=== PATIENT | female | born 1990 | race Caucasian/White ===

== ENCOUNTER 2017-09-06 02:16 | Emergency (ER) | payer SELFPAY ==
[~2017-09-06] VITALS: Ht 132.1 cm; Wt 77.1 kg
[~2017-09-06 02:16] MED LIST: ACET-1718 PO; IBUP800T37 PO; PREN-127 PO; PROG200C PO; SERT-1 PO; SERT-181 PO
[2017-09-06] MEDS ORDERED: NS(*) 0.9% 1000 ML BAG 1,000 ML IV ONE (02:23)
--- NOTE | 2017-09-06 02:23 | ER Report ---
History and Physical Time Seen By MD: 02:22 HPI/ROS CHIEF COMPLAINT: Heavy vaginal bleeding HISTORY OF PRESENT ILLNESS: 27-year-old female at 14 weeks, presents with awakening at midnight with heavy vaginal bleeding saturating her bed. She stood up and passed a large bunch of clots. And then had another gush of blood at approximately 2 AM. She presents to the ER. Tachycardic in borderline hypotensive with a blood pressure of 105. She is slightly pale appearing, skin is warm and dry. She is tachycardic. She has a previous history of miscarriages requiring D&C. REVIEW OF SYSTEMS: Respiratory: No cough, no dyspnea. Cardiovascular: No chest pain, no palpitations. Gastrointestinal: No vomiting, no abdominal pain. Musculoskeletal: No back pain. Allergies: Coded Allergies: azithromycin (Verified Allergy, Intermediate, RASH, 09/06/17) Home Meds Reported Medications Sertraline Hcl (ZOLOFT) 50 Mg Tablet, 1 TAB PO QDAY, TAB 08/02/17 Vits W-Ca,Fe,Fa(<1MG) ( VITAMINS) 1 Each Tablet, 1 EACH PO DAILY, TAB 04/23/17 Discontinued Reported Medications Progesterone,Micronized (PROGESTERONE) 200 Mg Capsule, 200 MG PO, CAPSULE 08/02/17 Reviewed Nurses Notes: Yes Old Medical Records Reviewed: Yes Hx Smoking: No Smoking Status: Never Smoker Exposure to Second Hand Smoke?: No Hx Substance Use Disorder: No Hx Alcohol Use: No Constitutional Vital Sign - Last 24 Hours 09/06/17 09/06/17 09/06/17 09/06/17 02:20 02:23 02:31 02:36 Temp 99.0 Pulse 85 86 92 Resp B/P (MAP) 105/71 105/71 (82) 111/72 (85) Pulse Ox 95 99 O2 Delivery Room Air 09/06/17 09/06/17 09/06/17 09/06/17 02:37 02:38 02:46 03:01 Pulse 99 112 85 126 Resp B/P (MAP) 111/80 (90) 91/81 (84) Pulse Ox 99 99 99 100 O2 Delivery Room Air Room Air 09/06/17 09/06/17 09/06/17 09/06/17 03:29 03:31 03:46 04:06 Pulse 85 ??? 88 Resp 22 17 10 B/P (MAP) 105/74 (84) Pulse Ox 97 94 97 09/06/17 09/06/17 09/06/17 04:26 04:30 04:35 Pulse 77 74 79 Resp 13 8 25 Pulse Ox 99 92 91 Physical Exam General Appearance: The patient is alert, has no immediate need for airway protection and no current signs of toxicity. Vital signs stable, borderline blood pressure, afebrile, skin warm, dry, pink HEENT: Pupils equal and round no injection. Extremities are moist, no erythema Respiratory: Chest is non tender, lungs are clear to auscultation. Cardiac: regular rate and rhythm Gastrointestinal: Abdomen is soft and non tender, no masses, bowel sounds normal. Pelvic: Small amount Dark blood and clots in the vaginal vault., Dark clots extending out of the cervical os, no adnexal tenderness or masses Musculoskeletal: Neck: Neck is supple and non tender. Extremities have full range of motion and are non tender. Skin: No rashes or lesions. DIFFERENTIAL DIAGNOSIS: After history and physical exam differential diagnosis was considered for vaginal bleeding including but not limited to ectopic , menses, miscarriage, subchorionic hemorrhage and dysfunctional uterine bleeding. Medical Decision Making Data Points Result Diagram: 09/06/1722409/06/17224 Laboratory Hematology Test 09/06/17 02:25 Red Blood Count 4.59 M/uL (4.17-5.56) Mean Corpuscular Volume 79.5 fL (80.0-96.0) Mean Corpuscular Hemoglobin 26.5 pg (26.0-33.0) Mean Corpuscular Hemoglobin Concent 33.3 g/dL (32.0-36.0) Red Cell Distribution Width 14.1 % (11.5-14.5) Mean Platelet Volume 8.7 fL (7.2-11.1) Neutrophils (%) (Auto) 62.2 % (39.4-72.5) Lymphocytes (%) (Auto) 26.1 % (17.6-49.6) Monocytes (%) (Auto) 10.3 % (4.1-12.4) Eosinophils (%) (Auto) 0.6 % (0.4-6.7) Basophils (%) (Auto) 0.8 % (0.3-1.4) Nucleated RBC Relative Count (auto) 0.0 /100WBC Neutrophils # (Auto) 5.7 K/uL (2.0-7.4) Lymphocytes # (Auto) 2.4 K/uL (1.3-3.6) Monocytes # (Auto) 0.9 K/uL (0.3-1.0) Eosinophils # (Auto) 0.1 K/uL (0.0-0.5) Basophils # (Auto) 0.1 K/uL (0.0-0.1) Nucleated RBC Absolute Count (auto) 0.00 K/uL Prothrombin Time 12.9 seconds (12.0-14.4) Prothromb Time International Ratio 0.98 Activated Partial Thromboplast Time 30 seconds (23-35) Sodium Level 134 mmol/L (137-145) Potassium Level 3.6 mmol/L (3.5-5.0) Chloride Level 102 mmol/L (98-107) Carbon Dioxide Level 23 mmol/L (22-31) Blood Urea Nitrogen 9 mg/dl (7-18) Creatinine 0.60 mg/dl (0.52-1.04) Glomerular Filtration Rate Calc > 60.0 Random Glucose 85 mg/dl (75-110) Calcium Level 9.1 mg/dl (8.4-10.2) Total Bilirubin 0.3 mg/dl (0.2-1.3) Aspartate Amino Transf (AST/SGOT) 18 U/L (0-35) Alanine Aminotransferase (ALT/SGPT) 22 U/L (0-56) Alkaline Phosphatase 54 U/L (0-126) Total Protein 7.8 gm/dl (6.3-8.2) Albumin 4.2 g/dl (3.5-5.0) Human Chorionic Gonadotropin, Qual Positive (NEGATIVE) Human Chorionic Gonadotropin, Quant 76963 mIU/ml Chemistry Test 09/06/17 02:25 White Blood Count 9.1 k/uL (4.5-11.0) Red Blood Count 4.59 M/uL (4.17-5.56) Hemoglobin 12.2 g/dL (12.0-16.0) Hematocrit 36.5 % (34.0-47.0) Mean Corpuscular Volume 79.5 fL (80.0-96.0) Mean Corpuscular Hemoglobin 26.5 pg (26.0-33.0) Mean Corpuscular Hemoglobin Concent 33.3 g/dL (32.0-36.0) Red Cell Distribution Width 14.1 % (11.5-14.5) Platelet Count 345 K/uL (150-450) Mean Platelet Volume 8.7 fL (7.2-11.1) Neutrophils (%) (Auto) 62.2 % (39.4-72.5) Lymphocytes (%) (Auto) 26.1 % (17.6-49.6) Monocytes (%) (Auto) 10.3 % (4.1-12.4) Eosinophils (%) (Auto) 0.6 % (0.4-6.7) Basophils (%) (Auto) 0.8 % (0.3-1.4) Nucleated RBC Relative Count (auto) 0.0 /100WBC Neutrophils # (Auto) 5.7 K/uL (2.0-7.4) Lymphocytes # (Auto) 2.4 K/uL (1.3-3.6) Monocytes # (Auto) 0.9 K/uL (0.3-1.0) Eosinophils # (Auto) 0.1 K/uL (0.0-0.5) Basophils # (Auto) 0.1 K/uL (0.0-0.1) Nucleated RBC Absolute Count (auto) 0.00 K/uL Prothrombin Time 12.9 seconds (12.0-14.4) Prothromb Time International Ratio 0.98 Activated Partial Thromboplast Time 30 seconds (23-35) Glomerular Filtration Rate Calc > 60.0 Calcium Level 9.1 mg/dl (8.4-10.2) Total Bilirubin 0.3 mg/dl (0.2-1.3) Aspartate Amino Transf (AST/SGOT) 18 U/L (0-35) Alanine Aminotransferase (ALT/SGPT) 22 U/L (0-56) Alkaline Phosphatase 54 U/L (0-126) Total Protein 7.8 gm/dl (6.3-8.2) Albumin 4.2 g/dl (3.5-5.0) Human Chorionic Gonadotropin, Qual Positive (NEGATIVE) Human Chorionic Gonadotropin, Quant 62312 mIU/ml Coagulation Test 09/06/17 02:25 Prothrombin Time 12.9 seconds Prothromb Time International Ratio 0.98 Activated Partial Thromboplast Time 30 seconds EKG/Imaging Imaging Results: Ultrasound of the greater than 14 week OB ultrasound was obtained. The results of the study are INDICATION: , vaginal bleeding. COMPARISON: 08/02/2017. TECHNIQUE: Grayscale, color Doppler and M-mode ultrasound images of the fetus and maternal organs were obtained. FINDINGS: Reported estimated date of delivery: 03/05/2018 Age by dates: 14 weeks, 2 days Number of fetuses: 1 position: Breech Placental location: Anterior/fundal. There may be additional placental material extending to posteriorly which could suggest a succenturiate lobe. Deep to this is crescentic hypoechoic material. Cervix: Closed. Amniotic fluid volume: Grossly normal. Biometry as follows: Biparietal diameter: 2.73 cm 14 weeks, 6 days Head circumference: 9.68 cm 14 weeks, 4 days Abdominal circumference: 8.45 cm 14 weeks, 6 days Femur length: 1.45 cm 14 weeks, 2 days Average age by ultrasound: 14 weeks, 5 days Estimated weight: 100 gm weight percentile: 51st %tile anatomic survey was not performed. heart rate is 167 BPM. IMPRESSION: 1. Single intrauterine gestation with average ultrasound age of 14 weeks 5 days , corresponding to gestational age by date, which is 14 weeks 2 days. Estimated weight is in the 51st %tile. heart rate is 167 BPM. 2. Anterior/fundal placental with possible succenturiate lobe extending posteriorly. Crescentic hypoechoic material deep to this could represent subchorionic hemorrhage or abruption appropriate setting. Consider obstetric consultation and follow-up as indicated. The study was read by the radiologist. I viewed the images myself on the PACS system. ED Course/Re-evaluation Clinical Indication for ER IV: Hydration, IV Access ED Course Patient was admitted to an examination room. H&P was done. The dental diagnoses was considered. On clinical examination. Patient was borderline hypotensive on arrival. She had a peripheral IV established, was given 1 L of normal saline. Her H&H were evaluated and were unremarkable. A 12 and 36. She underwent pelvic ultrasound which showed an intact 14 week with a subchorionic hemorrhage. On pelvic examination there were dark clots being expressed from the cervix. Otherwise, no gonzalo bleeding. Case was discussed with on-call OPHTHALMIC PHOTOGRAPHER who advised urgent follow-up tomorrow in the office. 09/06/2017 4:25:04 am case was discussed with Dr. Moser on-call OPHTHALMIC PHOTOGRAPHER, who advises follow-up in the next 1-2 days with the primary OPHTHALMIC PHOTOGRAPHER. Patient otherwise advised bed rest Decision to Disposition Date: Sep 06, 2017 Decision to Disposition Time: 04:24 Depart Departure Latest Vital Signs Vital Signs Date Time Temp Pulse Resp B/P (MAP) Pulse Ox O2 Delivery O2 Flow Rate FiO2 09/06/17 04:35 79 25 91 09/06/17 03:29 105/74 (84) 09/06/17 02:38 Room Air 09/06/17 02:20 99.0 Impression: Primary Impression: Miscarriage, threatened, early Condition: Improved Disposition: HOME OR SELF-CARE Referrals: SHAWN HUGO MD (PCP) Patient Instructions: Threatened Miscarriage (ED) Additional Instructions: Remain at bedrest as much as possible, drink plenty of fluids Contact your OPHTHALMIC PHOTOGRAPHER later this morning and let them know how you are doing MONIKA BISWAS DO Sep 06, 2017 02:23
[2017-09-06 02:43] LABS: PLATELET COUNT, AUTOMATED 345 K/uL (150-450)
[2017-09-06 02:56] LABS: INR 0.98
[2017-09-06 03:29] VITALS: BP 105/74
--- NOTE | 2017-09-06 04:12 | RADIOLOGY IMAGING REPORT ---
FACILITY: [facility] PATIENT NAME: Madison Dove : 1990 MR: [id number] V: [id number] EXAM DATE: ORDERING PHYSICIAN: MONIKA BISWAS TECHNOLOGIST: [place] [facility] [place] Dove : 1990 Visit/Account:[id number] Date of Sevice: 09/06/2017 EXAMINATION: LIMITED OB ULTRASOUND DATE: 09/06/2017 2:23 AM. INDICATION: , vaginal bleeding. COMPARISON: 08/02/2017. TECHNIQUE: Grayscale, color Doppler and M-mode ultrasound images of the fetus and maternal organs wer e obtained. FINDINGS: Reported estimated date of delivery: 03/05/2018 Age by dates: 14 weeks, 2 days Number of fetuses: 1 position: Breech Placental location: Anterior/fundal. There may be additional placental material extending to vp product iorly which could suggest a succenturiate lobe. Deep to this is crescentic hypoechoic material. Cervix: Closed. Amniotic fluid volume: Grossly normal. Biometry as follows: Biparietal diameter: 2.73 cm 14 weeks, 6 days Head circumference: 9.68 cm 14 weeks, 4 days Abdominal circumference: 8.45 cm 14 weeks, 6 days Femur length: 1.45 cm 14 weeks, 2 days Average age by ultrasound: 14 weeks, 5 days Estimated weight: 100 gm weight percentile: 51st %tile anatomic survey was not performed. heart rate is 167 BPM. IMPRESSION: 1. Single intrauterine gestation with average ultrasound age of 14 weeks 5 days, corresponding to ge stational age by date, which is 14 weeks 2 days. Estimated weight is in the 51st %tile. heart rate is 167 BPM. 2. Anterior/fundal placental with possible succenturiate lobe extending posteriorly. Crescentic hypo echoic material deep to this could represent subchorionic hemorrhage or abruption appropriate setting . Consider obstetric consultation and follow-up as indicated. Report Dictated By: Jamie Melissa MD at 09/06/2017 3:54 AM Report E-Signed By: Jamie Melissa MD at 09/06/2017 4:07 AM WSN:[id number]
== END 2017-09-06 04:48 | disposition home or self-care (01) ==
LOC: ER 02:17
DX: O20.0 Threatened abortion (principal); Z3A.14 14 weeks gestation of pregnancy
CPT/HCPCS: 76805; 84702; 84703; 85025; 85610; 85730; 86850; 86900; 86901; 86920; 96360; 99284; J7030; 82040; 82247; 82310; 82374; 82435; 82565; 82947; 84075; 84132; 84155; 84295; 84450; 84460; 84520

== ENCOUNTER → 2017-12-07 | Outpatient (CLI) | payer MEDICAID ==
[~2017-12-07] MED LIST changes: +CETI-169 PO; +DIPH0.5D21 IM; +SERT-184 PO
== END ==
LOC: LAB 14:29
PROVIDERS: ATTEND Obstetrics & Gynecology
DX: Z34.92 Encounter for supervision of normal pregnancy, unspecified, second trimester (principal)
CPT/HCPCS: 36415; 85027

== ENCOUNTER → 2017-12-09 | Outpatient (CLI) | payer MEDICAID | LOC: LAB 09:52 | PROVIDERS: ATTEND Obstetrics & Gynecology | DX: Z34.92 Encounter for supervision of normal pregnancy, unspecified, second trimester (principal) | CPT/HCPCS: 36415; 82950 ==

== ENCOUNTER 2018-02-08 02:49 | Outpatient (CLI) | payer MEDICAID ==
[~2018-02-08] VITALS: Ht 157.5 cm; Wt 92.1 kg
[~2018-02-08 02:49] MED LIST changes: -DIPH0.5D21 IM; +DIPH0.5S4 IM; +FLUC150T40 PO
[2018-02-08] MEDS ORDERED: DLR(*) 1000 ML BAG 1,000 ML IV PRN (02:50)
[2018-02-08] MEDS ORDERED: LR(*) 1000 ML BAG 1,000 ML IV PRN (02:50)
[2018-02-08 04:54] VITALS: BP 109/69; Ht 157.5 cm; Wt 92.1 kg
[2018-02-08] MEDS ORDERED: ONDANSETRON 4 MG ODT TABDP SL PRN (05:00)
[2018-02-08] MEDS ORDERED: ONDA4TAB PO (11:18)
[2018-02-13] MEDS ORDERED: LORA1TAB69 PO (09:30)
== END 2018-02-08 05:35 | disposition home or self-care (01) ==
LOC: OB 02:49 → L&D 02:49 → UNDOADMOB 02:49 → OB 02:49 → UNDODISOB 05:35 → L&D 05:35 → EDSTATUS 10:29
PROVIDERS: ATTEND Obstetrics & Gynecology
DX: O47.03 False labor before 37 completed weeks of gestation, third trimester (principal); Z3A.36 36 weeks gestation of pregnancy
CPT/HCPCS: 59025; 87081; G0463; J7120; S0119; 99213

== ENCOUNTER → 2018-02-09 | Outpatient (CLI) | payer MEDICAID ==
[2018-02-08 04:54] VITALS: BMI 37.1
[~2018-02-09] MED LIST changes: +ONDA4TAB PO
--- NOTE | 2018-02-09 11:09 | RADIOLOGY IMAGING REPORT ---
FACILITY: [facility] - [place] PATIENT NAME: Madison Dove : 1990 MR: [id number] V: [id number] EXAM DATE: ORDERING PHYSICIAN: SHAWN HUGO TECHNOLOGIST: Location: [facility] - [place] Patient: Madison Dove : 1990 Visit/Account:[id number] Date of Sevice: 02/09/2018 OB LIMITED HISTORY: Size greater than dates COMPARISON: September 06, 2017 TECHNIQUE: Transabdominal imaging was performed for assessment of the fetus and maternal pelvic s tructures. Transvaginal imaging was not performed. FINDINGS: Intrauterine gestations: One. presentation: Cephalic. heart rate: 136 bpm. Amniotic fluid volume: Polyhydramnios; SILVIA 22.1 cm; MVP 8 point 0.8 cm. Placenta: Anterior. Uterus: Gravid, otherwise grossly unremarkable where visualized. Maternal adnexa/ovaries: Grossly unremarkable, ovaries not visualized. Cervix: Not evaluated. Gestational Parameters: BPD: 9.12 cm, 74th percentile HC: 34.34 cm, 89th percentile AC: 32.81 cm, 67th percentile FL: 7.28 cm 66th percentile Average ultrasound age (AUA): 37 weeks/ five days Estimated age based on LMP: 36 weeks/ four days, 71st percentile Estimated weight (EFW): 3146 grams +/- 460 grams Anatomic Survey: Anatomic survey not performed IMPRESSION: Single viable fetus in cephalic presentation with an estimated gestational age by measurements of 37 weeks and five days. Estimated gestational age by last menstrual period is 36 weeks and four days. Estimated weight 3146 g There is polyhydramnios with the amniotic fluid index of 22.1 cm Results were called to SHAWN HUGO's nurse at 02/09/2018 11:05 AM. Report Dictated By: Darleen Humphries MD at 02/09/2018 10:57 AM Report E-Signed By: Darleen Humphries MD at 02/09/2018 11:05 AM WSN:[email or web address]
== END ==
LOC: RAD 07:54
PROVIDERS: ATTEND Obstetrics & Gynecology
DX: Z02.9 Encounter for administrative examinations, unspecified (principal)
CPT/HCPCS: 76815

== ENCOUNTER 2018-02-14 23:20 | Outpatient (CLI) | payer MEDICAID ==
[~2018-02-14] VITALS: Ht 157.5 cm; Wt 92.5 kg
[~2018-02-14 23:20] MED LIST changes: +LORA1TAB69 PO
[2018-02-15 01:01] VITALS: BP 119/77; Ht 157.5 cm; Wt 92.5 kg
== END 2018-02-15 03:02 | disposition home or self-care (01) ==
LOC: OB 23:20 → UNDOADMOB 23:20 → L&D 23:20 → UNDODISOB 02-15 03:02 → L&D 02-15 03:02 → EDSTATUS 03-15 07:13
PROVIDERS: ATTEND Obstetrics & Gynecology
DX: O47.1 False labor at or after 37 completed weeks of gestation (principal); Z3A.37 37 weeks gestation of pregnancy
CPT/HCPCS: 59025; G0378; G0379; 99213

== ENCOUNTER 2018-02-21 12:56 | Observation (INO) | payer MEDICAID ==
[~2018-02-21] VITALS: Ht 157.5 cm; Wt 93.0 kg
[2018-02-21] MEDS ORDERED: LR(*) 1000 ML BAG 1,000 ML IV SCH (13:11)
[2018-02-21] MEDS ORDERED: FAMOTIDINE(*) 20MG/50ML PREMIX 50 ML IVPB PRN (13:11)
[2018-02-21] MEDS ORDERED: OXYTOCIN 30 UNIT/D5LR 500 ML 500 ML IV PRN ×2 (13:11→14:12)
[2018-02-21] MEDS ORDERED: LIDOCAINE 1% LOCAL 300 MG/30ML INJ PRN (13:15)
[2018-02-21] MEDS ORDERED: fentaNYL CITR 100 MCG/2 ML AMP IVP PRN (13:15)
[2018-02-21] MEDS ORDERED: FLUSH 10 ML SYR IVP PRN (13:15)
[2018-02-21] MEDS ORDERED: LIDOCAINE/SOD BICARB 8.4% SYR SC PRN (13:15)
[2018-02-21] MEDS ORDERED: METOCLOPRAMIDE 10 MG/2 ML SDV IVP PRN (13:15)
[2018-02-21 13:30] VITALS: BP 124/73; Ht 157.5 cm; Wt 93.0 kg
[2018-02-21 13:37] LABS: PLATELET COUNT, AUTOMATED 208 K/uL (150-450)
--- NOTE | 2018-02-21 14:24 | History & Physical ---
History of Present Illness EDC per LMP: Mar 05, 2018 Estimated Gestational Age: 38.2 Chief Complaint Induction History of Present Illness 27yo at 38w2d presents for induction of labor for advanced cervical dilation. She has had regular uterine contractions for the past week, although this morning they have decreased significantly. She reports FM. No VB. No preeclampsia symptoms. PNC by IMG. PNR reviewed. c/b depression and S>D but normal ultrasound 02/09/18 with an EFW 71%ile. History Patient's Blood Type: A Positive Rubella Status: Immune Group B Strep Screen: Negative Obstetrical History: G1: 40w5d G2: 6wk SAB with hemorrhage and emergent D&C Past Medical History: PMH: Hearing deficit, IBS, arthritis, depression PSH: Emergent D&C Allergies: Coded Allergies: azithromycin (Verified Allergy, Intermediate, RASH, 09/06/17) egg (Unverified Adverse Reaction, Unknown, none listed, 11/28/17) gluten (Unverified Adverse Reaction, Unknown, none listed, 11/28/17) lactose (Unverified Adverse Reaction, Unknown, none listed, 11/28/17) Social History: No T/E/D. . Just moved here from [place]. 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 Family History: Duchenne muscle dystrophy maternal uncle FH: HTN (hypertension) MOTHER, Age:61 FH: diabetes mellitus maternal grandfather Med Rec Home Meds Active Scripts Ondansetron (ZOFRAN ODT) 4 Mg Tab.rapdis, 4 MG PO Q8H Y for ausean, #15 TAB.BUDDY 0 Refills Prov:SHAWN HUGO MD 02/08/18 Sertraline Hcl (SERTRALINE HCL) 100 Mg Tablet, 1 TAB PO QDAY, #90 TAB 3 Refills Prov:SHAWN HUGO MD 12/07/17 Reported Medications Loratadine/Pseudoephedrine (CLARITIN-D 24 HOUR TABLET) 1 Each Tab.er.24h, 1 EACH PO 02/13/18 Vits W-Ca,Fe,Fa(<1MG) ( VITAMINS) 1 Each Tablet, 1 TAB PO DAILY , TAB 04/23/17 Review of Systems Constitutional: No Fever Eyes: No Vision Change ENT: Hearing Loss Cardiovascular: No Chest Pain Respiratory: No Shortness of Breath, No Cough Gastrointestinal: No Nausea, No Vomiting, No Diarrhea Genitourinary: No Dysuria Musculoskeletal: No Pain Psychiatric: Depression, No Anxiety Exam General Exam Vital Signs VS reviewed General Apperance: Alert/Awake/No Acute Distress Neuro: No Gross deficits Eyes: Normal Extraocular Movement & Vison, PERRLA Cardiovascular: Regular Rate and Rhythm Respiratory: No Respiratory Distress, Clear to Auscultation Abdomen: Gravid - Non-Tender : Normal Musculoskeletal: No Weakness/Pain Extremities: No Cyanosis,Clubbing or Edema Integumentary: Skin Intact without Lesions or Rash Psychological: Alert & Oriented X3, Appropriate Mood & Affect Cervical Dialation: 6 Cervical Effacement (%): 60 Cervical Consistency: Moderate Cervical Position: Mid Station: Ballotable Presentation: Vertex Uterine Contractions(Q min): 0 Fetus FHT Category: I Medical Decision Making Data Points Result Diagram: 02/21/18 0365 Assessment and Plan Problems: (1) 38 weeks gestation of Assessment & Plan: 27-year-old at 38w2d presents for induction due to advanced cervical dilation. She was having regular uterine contractions for almost one full week, but no active labor. We discussed this may indicate a small infection versus normal irritability. I have offered her waiting until 39 weeks versus induction at this time. After discussing risks, benefits and alternatives she and her have elected to proceed with an induction of labor. The plan was for AROM, but baby's vertex is ballotable. Will start with slow pitocin and AROM once it is deemed safe. (2) Depression affecting Assessment & Plan: Zoloft 100mg now, but will consider increasing . SHAWN HUGO MD Feb 21, 2018 14:23
--- NOTE | 2018-02-21 18:32 | Labor Progress Note ---
Labor Subjective Progress Notes Subjective Patient is feeling contractions but not strong. She is on 10mU of pitocin. She denies VB. No LOF. No preeclampsia symptoms. Labor Objective Vital Signs Vital Signs Date Time Temp Pulse Resp B/P (MAP) Pulse Ox O2 Delivery O2 Flow Rate FiO2 02/21/18 13:30 98.3 80 18 124/73 (90) 96 Room Air Cervical Dialation: 5 Cervical Effacement (%): 60 Cervical Consistency: Moderate Cervical Position: Posterior Station: Ballotable Presentation: Vertex Uterine Contractions(Q min): 3 Fetus FHT Category: I General Exam General Appearance: Alert/Awake/No Acute Distress Cardiovascular: Normal Rhythm & Peripheral Pulses Respiratory: Clear to Auscultation Abdomen: Gravid - Non-Tender : Normal Musculoskeletal: No Weakness/Pain Extremities: No Cyanosis,Clubbing or Edema Integumentary: Skin Intact without Lesions or Rash Psychological: Alert & Oriented X3, Appropriate Mood & Affect Other Result Diagram: 02/21/18 1325 Assessment and Plan Problems: (1) 38 weeks gestation of Assessment & Plan: Pt is still only 5cm and 60% but can be stretched to 6cm. The cervix appears even more posterior than it was previously. The head is more central over the cervical opening, but still ballotable. She is currently on 10mu/min of pitocin with inconsistent contractions that are not very strong. This amount of pitocin has not been sufficient for the head to come down. I spent the past 45 minutes discussing options with the patient and her . We have discussed the most recent ultrasound revealed 71%ile EFW and SILVIA 15cm. This could be concerning for CPD, but the fact that the head was well applied yesterday and able to progress her cervix to 6/80 at that time is no as consistent with CPD. We discussed if she stays for induction, she is at a risk for for arrest of dilation or even cord prolapse. However, we also discussed the risks of cord prolapse if she goes home. She lives [place] [address] [place] from [facility] and is aware this is a low risk. After a lengthy discussion, she has opted to discontinue the pitocin and go home assuming she gets comfortable with decreased contractions after the pitocin is stopped. She will RTC on 02/23/18 for an ultrasound, 02/24/18 for OB check and NST, then again on 02/28/18 for an OB visit and NST. All questions were addressed. She is aware of precautions for worsening contractions, decreased FM or loss of fluid to come back. (2) Depression affecting Assessment & Plan: Zoloft 100mg now, but will consider increasing . SHAWN HUGO MD Feb 21, 2018 18:32
--- NOTE | 2018-02-21 18:34 | Short(Outpt) Discharge Summary ---
Discharge Summary Reason for Hosp/Final Diag: (1) 38 weeks gestation of Hospital Course & Plan: Pt is still only 5cm and 60% but can be stretched to 6cm. The cervix appears even more posterior than it was previously. The head is more central over the cervical opening, but still ballotable. She is currently on 10mu/min of pitocin with inconsistent contractions that are not very strong. This amount of pitocin has not been sufficient for the head to come down. I spent the past 45 minutes discussing options with the patient and her . We have discussed the most recent ultrasound revealed 71%ile EFW and SILVIA 15cm. This could be concerning for CPD, but the fact that the head was well applied yesterday and able to progress her cervix to 6/80 at that time is no as consistent with CPD. We discussed if she stays for induction, she is at a risk for for arrest of dilation or even cord prolapse. However, we also discussed the risks of cord prolapse if she goes home. She lives [place] away from [facility] and is aware this is a low risk. After a lengthy discussion, she has opted to discontinue the pitocin and go home assuming she gets comfortable with decreased contractions after the pitocin is stopped. She will RTC on 02/23/18 for an ultrasound, 02/24/18 for OB check and NST, then again on 02/28/18 for an OB visit and NST. All questions were addressed. She is aware of precautions for worsening contractions, decreased FM or loss of fluid to come back. (2) Depression affecting Hospital Course & Plan: Zoloft 100mg now, but will consider increasing . Departure Discharge to: Home, Self Care Discharge Instructions Home Meds Active Scripts Ondansetron (ZOFRAN ODT) 4 Mg Tab.rapdis, 4 MG PO Q8H Y for ausean, #15 TAB.BUDDY 0 Refills Prov:SHAWN HUGO MD 02/08/18 Sertraline Hcl (SERTRALINE HCL) 100 Mg Tablet, 1 TAB PO QDAY, #90 TAB 3 Refills Prov:SHAWN HUGO MD 12/07/17 Reported Medications Loratadine/Pseudoephedrine (CLARITIN-D 24 HOUR TABLET) 1 Each Tab.er.24h, 1 EACH PO 02/13/18 Vits W-Ca,Fe,Fa(<1MG) ( VITAMINS) 1 Each Tablet, 1 TAB PO DAILY , TAB 04/23/17 Follow up Referrals: [facility] - 02/23/18 @ [facility] Activity: As Tolerated SHAWN HUGO MD Feb 21, 2018 18:34
[2018-02-22] MEDS ORDERED: OXYTOCIN 30 UNIT/D5LR 500 ML 500 ML IV PRN (02:08)
== END 2018-02-21 21:46 | disposition home or self-care (01) ==
LOC: OB 12:56 → INTOOBSV 12:56
PROVIDERS: ADMIT Obstetrics & Gynecology; ATTEND Obstetrics & Gynecology
DX: O47.1 False labor at or after 37 completed weeks of gestation (principal); O99.343 Other mental disorders complicating pregnancy, third trimester; Z3A.38 38 weeks gestation of pregnancy
CPT/HCPCS: 85025; 86850; 86900; 86901; G0378; G0379; J2590; J7120

== ENCOUNTER → 2018-02-23 | Outpatient (CLI) | payer MEDICAID ==
[2018-02-21 13:30] VITALS: BMI 37.5
--- NOTE | 2018-02-23 17:37 | RADIOLOGY IMAGING REPORT ---
FACILITY: [facility] PATIENT NAME: Madison Dove : 1990 MR: [id number] V: [id number] EXAM DATE: ORDERING PHYSICIAN: SHAWN HUGO TECHNOLOGIST: Location: [facility] - [place] Patient: Madison Dove : 1990 Visit/Account:[id number] Date of Sevice: 02/23/2018 EXAMINATION: Limited Transabdominal OB Ultrasound >14 wks Without Full Anatomic Survey 02/23/2018 9:10 AM HISTORY: Size date discrepancy COMPARISON: [facility] most recently 02/09/2014 FINDINGS: Intrauterine gestations: one presentation: vertex heart rate: 146 bpm Amniotic fluid index: 17.6 cm Largest amniotic fluid pocket 9.1 cm Placenta: Anterior without previa Uterus: gravid, otherwise normal Maternal adnexa: Not imaged Cervix: Grossly closed but not well seen. Transvaginal imaging was not done. Gestational Parameters: BPD: 9.4 cm 38 weeks 2 days HC: 34.9 cm 40 weeks 4 days AC: 34.9 cm 38 weeks 6 days FL: 7.4 cm 38 weeks 0 days Average ultrasound age (AUA): 39 weeks 0 days , JOSELINE 03/02/2018 Estimated gestational age by LMP: 38 weeks 4 days, JOSELINE 03/05/2018 Estimated weight (EFW): 3184 grams +/- 523 grams EFW for LMP percentile: 71 Anatomic Survey: Complete anatomic survey was not performed. IMPRESSION: Single live intrauterine gestation; estimated ultrasound age 39 weeks 0 days (JOSELINE 03/02/2018). This i s within range of expected dates.. Report Dictated By: Liborio Villalpando MD at 02/23/2018 5:28 PM Report E-Signed By: Liborio Villalpando MD at 02/23/2018 5:33 PM WSN:[email or web address]
== END ==
LOC: RAD 09:04
PROVIDERS: ATTEND Obstetrics & Gynecology
DX: Z02.9 Encounter for administrative examinations, unspecified (principal)
CPT/HCPCS: 76815

== ENCOUNTER 2018-02-28 05:08 | Inpatient (IN) | payer MEDICAID ==
[~2018-02-28] VITALS: Ht 157.5 cm; Wt 93.0 kg
[2018-02-28] MEDS ORDERED: LIDOCAINE/SOD BICARB 8.4% SYR SC PRN (05:10)
[2018-02-28] MEDS ORDERED: METOCLOPRAMIDE 10 MG/2 ML SDV IVP PRN (05:10)
[2018-02-28] MEDS ORDERED: TERBUTALINE SULF 1 MG/ML VIAL SUBQ PRN (05:10)
[2018-02-28] MEDS ORDERED: OXYTOCIN 30 UNIT/D5LR 500 ML 500 ML IV PRN ×2 (05:10→13:14)
[2018-02-28] MEDS ORDERED: fentaNYL CITR 100 MCG/2 ML AMP IVP PRN (05:10)
[2018-02-28] MEDS ORDERED: LIDOCAINE 1% LOCAL 300 MG/30ML INJ PRN (05:10)
[2018-02-28] MEDS ORDERED: ceFAZolin(*) 2GM/D5W 50ML 50 ML IVPB PRN (05:10)
[2018-02-28] MEDS ORDERED: FLUSH 10 ML SYR IVP PRN (05:10)
[2018-02-28] MEDS ORDERED: ONDANSETRON 4 MG/2 ML VIAL IVP PRN (05:10)
[2018-02-28] MEDS ORDERED: FAMOTIDINE(*) 20MG/50ML PREMIX 50 ML IVPB PRN (05:10)
[2018-02-28 05:30] VITALS: BP 111/68; Ht 157.5 cm; Wt 93.0 kg
[2018-02-28 06:19] LABS: PLATELET COUNT, AUTOMATED 171 K/uL (150-450)
[2018-02-28] MEDS: LR(*) 1000 ML BAG 1,000 ML IV PRN ×2 (06:24→10:25)
[2018-02-28] MEDS ORDERED: fentaNYL CITR 100 MCG/2 ML AMP IT PRN (07:30)
[2018-02-28] MEDS ORDERED: BUPIVACAINE 0.5% INJ 30ML VIAL EPI PRN (07:30)
[2018-02-28] MEDS ORDERED: FENTANYL/ROPIVACAINE 100 ML BAG EPI PRN (07:30)
[2018-02-28] MEDS ORDERED: EPIDURAL KEYS XX PRN (07:30)
[2018-02-28] MEDS ORDERED: LIDO/EPI 2% MPF 1:200,000 20ML EPI PRN (07:30)
[2018-02-28] MEDS ORDERED: LIDOCAINE/PF 2% 200MG/10ML AMP 200 MG/10 ML AMPUL EPI PRN (07:30)
[2018-02-28] MEDS ORDERED: BUPIVACAINE 0.25% MPF INJ EPI PRN (07:30)
--- NOTE | 2018-02-28 07:37 | History & Physical ---
History of Present Illness EDC per LMP: Mar 05, 2018 Estimated Gestational Age: 39.2 Chief Complaint Induction History of Present Illness 27yo at 39w2d presents for induction of labor due to advanced cervical dilation, S>D and patient desires for induction. She reports regular UCx coming in and normal FM. No VB/LOF. No preeclampsia symptoms. PNR reviewed. otherwise c/b depression. PNC by IMG. History Patient's Blood Type: A Positive Rubella Status: Immune Group B Strep Screen: Negative Obstetrical History: G1: 40w5d G2: Emergent D&C for hemorrhage with SAB G3: Present Past Medical History: PSH: D&C, wisdom teeth Allergies: Coded Allergies: azithromycin (Verified Allergy, Intermediate, RASH, 09/06/17) egg (Unverified Adverse Reaction, Unknown, none listed, 11/28/17) gluten (Unverified Adverse Reaction, Unknown, none listed, 11/28/17) lactose (Unverified Adverse Reaction, Unknown, none listed, 11/28/17) Social History: No T/E/D. . Just moved here from [place]. 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 Family History: Duchenne muscle dystrophy maternal uncle FH: HTN (hypertension) MOTHER, Age:61 FH: diabetes mellitus maternal grandfather Med Rec Home Meds Active Scripts Ondansetron (ZOFRAN ODT) 4 Mg Tab.rapdis, 4 MG PO Q8H Y for ausean, #15 TAB.BUDDY 0 Refills Prov:SHAWN HUGO MD 02/08/18 Sertraline Hcl (SERTRALINE HCL) 100 Mg Tablet, 1 TAB PO QDAY, #90 TAB 3 Refills Prov:SHAWN HUGO MD 12/07/17 Reported Medications Loratadine/Pseudoephedrine (CLARITIN-D 24 HOUR TABLET) 1 Each Tab.er.24h, 1 EACH PO 02/13/18 Vits W-Ca,Fe,Fa(<1MG) ( VITAMINS) 1 Each Tablet, 1 TAB PO DAILY , TAB 04/23/17 Review of Systems Constitutional: No Fever Eyes: No Vision Change Cardiovascular: No Chest Pain Respiratory: No Shortness of Breath Gastrointestinal: No Nausea, No Vomiting, No Diarrhea Genitourinary: No Dysuria Musculoskeletal: No Pain Psychiatric: Depression Exam General Exam Vital Signs Vital Signs Date Time Temp Pulse Resp B/P (MAP) Pulse Ox O2 Delivery O2 Flow Rate FiO2 02/28/18 05:30 98.0 93 18 111/68 (82) 98 Room Air General Apperance: Alert/Awake/No Acute Distress Neuro: No Gross deficits Eyes: Normal Extraocular Movement & Vison Cardiovascular: Regular Rate and Rhythm Respiratory: No Respiratory Distress Abdomen: Gravid - Non-Tender : Normal Musculoskeletal: No Weakness/Pain Extremities: No Cyanosis,Clubbing or Edema Integumentary: Skin Intact without Lesions or Rash Psychological: Alert & Oriented X3, Appropriate Mood & Affect Cervical Dialation: 6 Cervical Effacement (%): 60 Cervical Consistency: Soft Cervical Position: Mid Station: Ballotable Presentation: Vertex Uterine Contractions(Q min): 5 Uterine Contraction Strength: Mild UC Resting Tone: Soft Fetus Feeling Movement?: Yes FHT Category: I Medical Decision Making Data Points Result Diagram: 02/28/18 0608 Pre-Admit Course Medical Record Review: Yes VTE Prophylasis: Adult Deep Vein Thrombosis/Pulmonary: No Assessment and Plan Problems: (1) 39 weeks gestation of Assessment & Plan: 27yo at 39w2d presents for IOL. Vertex is still very ballotable. Will increase pitocin. If no improvement by 3-4hrs, will get epidural and still plan AROM. I have offered the patient a PLTCD due to head not coming down, but have also offered an attempt at AROM. She and her are aware of the risk of prolapsed umbilical cord in this situation, but at some point it may take AROM to allow the vertex to come down in station. The patient and her understand this risk and the potential benefits. They would still prefer to attempt AROM. Due to this risk, she will get an epidural ahead of AROM. SHAWN HGUO MD Feb 28, 2018 07:37
[2018-02-28] MEDS ORDERED: FAMOTIDINE 20 MG TAB PO PRN (09:00)
[2018-02-28] MEDS ORDERED: CALCIUM CARBONATE 500 MG CHEW PO PRN (09:00)
[2018-02-28] MEDS ORDERED: KETOROLAC 30 MG/ML VIAL ONE ×2 (09:56→18:12)
[2018-02-28] MEDS ORDERED: LIDO/EPI 2% MPF 1:200,000 20ML ONE (09:56)
[2018-02-28] MEDS ORDERED: NEXT CASE 1 EA MISC IV ONE ×2 (09:58→17:16)
[2018-02-28] MEDS: ePHEDrine 25 MG/5 ML DISP.SYR IVP PRN ×3 (11:27→17:45)
--- NOTE | 2018-02-28 11:46 | Anesthesia OB Pre-Anes Eval ---
History of Present Illness Anesthesia Start Date: Feb 28, 2018 Anesthesia Start Time: 10:35 OB Anesthesia Diagnosis: induction - medical Current Complication: obesity EDC: Mar 05, 2018 : 3 Para: 1 Vital Signs: Laboratory Tests Test 02/28/18 06:08 White Blood Count 8.2 k/uL Red Blood Count 4.28 M/uL Hemoglobin 12.1 g/dL Hematocrit 35.2 % Mean Corpuscular Volume 82.3 fL Mean Corpuscular Hemoglobin 28.3 pg Mean Corpuscular Hemoglobin Concent 34.4 g/dL Red Cell Distribution Width 17.5 % Platelet Count 171 K/uL Mean Platelet Volume 9.6 fL Neutrophils (%) (Auto) 64.6 % Lymphocytes (%) (Auto) 21.3 % Monocytes (%) (Auto) 12.9 % Eosinophils (%) (Auto) 0.6 % Basophils (%) (Auto) 0.6 % Nucleated RBC Relative Count (auto) 0.0 /100WBC Neutrophils # (Auto) 5.3 K/uL Lymphocytes # (Auto) 1.7 K/uL Monocytes # (Auto) 1.1 K/uL Eosinophils # (Auto) 0.0 K/uL Basophils # (Auto) 0.0 K/uL Nucleated RBC Absolute Count (auto) 0.00 K/uL Peripheral Blood Smear Yes Y/N Current Medications Medications (Trade) Dose Ordered Sig/Juan Antonio Route PRN Reason Start Time Stop Time Status Last Admin Dose Admin Sodium Chloride (NS Flush) 10 ml PRN PRN IVP FLUSH 02/28/18 05:10 03/30/18 05:09 Lactated Ringer's 1,000 ml @ 0 mls/hr Q0M PRN IV HYDRATION 02/28/18 05:10 03/30/18 05:09 02/28/18 10:25 Oxytocin/Dextrose/ Lactated Ringer's 500 ml @ 0 mls/hr Q0M PRN IV PRN 02/28/18 05:10 03/30/18 05:09 02/28/18 06:23 Terbutaline Sulfate (Terbutaline Sulf(*) 1 Mg/ml Vial) 0.25 mg PRN PRN SUBQ CONTRACTIONS 02/28/18 05:10 Fentanyl Citrate (fentaNYL CITR(*) 100 MCG/2 ML AMP) 50-100 MCG Q1H PRN IVP PAIN 02/28/18 05:10 03/14/18 05:09 Cefazolin Sodium/ Dextrose 50 ml @ 100 mls/hr Q30M PRN IVPB EMERGENCY C SECTION 02/28/18 05:10 Metoclopramide HCl (Reglan(*) 10 Mg/ 2 ml Sdv (Or Equiv)) 10 mg PRN PRN IVP EMERGENCY C SECTION 02/28/18 05:10 02/28/18 11:13 DC 02/28/18 11:13 Famotidine/Sodium Chloride 50 ml @ 200 mls/hr Q15M PRN IVPB EMERGENCY C SECTION 02/28/18 05:10 02/28/18 11:12 Lidocaine HCl (Lidocaine 1% Local 300 Mg/30ml) 100-300 MG PRN PRN INJ ANESTHESIA 02/28/18 05:10 03/30/18 05:09 Lidocaine/Sodium Bicarbonate (Buffered Lidocaine 8.4% 1 ml Syr) 1 ml PRN PRN SC START IV 02/28/18 05:10 03/30/18 05:09 Ondansetron HCl (Zofran(*) 4 Mg/ 2 ml(Or Equiv)) 4-8 mg IV Q6H PRN Nausea Q6H PRN IVP NAUSEA 02/28/18 05:10 03/30/18 05:09 02/28/18 10:25 Bupivacaine HCl (Sensorcaine Mpf 0.25% Mpf Inj 30 ml Vial) 30 ml PRN PRN EPI PAIN 02/28/18 07:30 03/30/18 07:29 02/28/18 10:25 Bupivacaine HCl (Sensorcaine 0.5% Inj 30 ml Vial (Or Equiv)) 30 ml PRN PRN EPI PAIN 02/28/18 07:30 03/30/18 07:29 Fentanyl/ Ropivacaine (fentaNYL/ ROPIVACAINE 100ML BAG) 100 ml PRN PRN EPI PAIN 02/28/18 07:30 03/14/18 07:29 02/28/18 10:25 Lidocaine HCl (Xylocaine-Pf 2% 20 Mg/1 ml Amp) 100-200 MG PRN PRN EPI PAIN 02/28/18 07:30 03/30/18 07:29 Lidocaine/ Epinephrine (Xylocaine/Epi 2% Mpf 1:200,000 20 ml Vial) 20 ml PRN PRN EPI PAIN 02/28/18 07:30 03/30/18 07:29 Fentanyl Citrate (fentaNYL CITR(*) 100 MCG/2 ML AMP) 15-100 MCG PRN PRN IT PAIN 02/28/18 07:30 03/14/18 07:29 02/28/18 10:26 Ephedrine (Ephedrine-NS 25 Mg/5 ml Disp.syr (Or Equiv)) 10 mg PRN PRN IVP SEE COMMENT 02/28/18 07:30 03/30/18 07:29 Miscellaneous Information (Epidural Cal-[place]ev-Ari) 1 each PRN PRN XX PAIN 02/28/18 07:30 03/30/18 07:29 Famotidine (Pepcid(*) 20 Mg Tab (Or Equiv)) 20 mg PRN PRN PO HEARTBURN 02/28/18 09:00 03/30/18 08:59 Calcium Carbonate (Tums(*) 500 Mg Chew (Or Equiv)) 1,000 mg PRN PRN PO HEARTBURN 02/28/18 09:00 03/30/18 08:59 02/28/18 09:06 Lidocaine/ Epinephrine (Xylocaine/Epi 2% Mpf 1:200,000 20 ml Vial) 20 ml STK-MED ONCE .ROUTE 02/28/18 09:56 02/28/18 10:09 DC Ketorolac Tromethamine (Toradol (*) 30 Mg/ml Vial (Or Equiv)) 30 mg STK-MED ONCE .ROUTE 02/28/18 09:56 02/28/18 10:09 DC Miscellaneous Information (Next Case) 1 each STK-MED ONCE IV 02/28/18 09:58 02/28/18 10:09 DC Pain Ratin Heart Tones: 143 Result Diagram: 02/28/18 06 Height (Inches): 62.00 Weight (Pounds): 205 BMI Calculated: 37.49 Past Medical History Surgical History: other (D AND C) Previous Anesthesia: general Hx Anesthesia Reactions: No Hx Family Anesthesia Reaction: No Current Medications: pitocin Past Complications: obesity Home Meds Active Scripts Ondansetron (ZOFRAN ODT) 4 Mg Tab.rapdis, 4 MG PO Q8H Y for ausean, #15 TAB.BUDDY 0 Refills Prov:SHAWN HUGO MD 02/08/18 Sertraline Hcl (SERTRALINE HCL) 100 Mg Tablet, 1 TAB PO QDAY, #90 TAB 3 Refills Prov:SHAWN HUGO MD 12/07/17 Reported Medications Loratadine/Pseudoephedrine (CLARITIN-D 24 HOUR TABLET) 1 Each Tab.er.24h, 1 EACH PO 02/13/18 Vits W-Ca,Fe,Fa(<1MG) ( VITAMINS) 1 Each Tablet, 1 TAB PO DAILY , TAB 04/23/17 Allergies: Coded Allergies: azithromycin (Verified Allergy, Intermediate, RASH, 09/06/17) egg (Unverified Adverse Reaction, Unknown, none listed, 11/28/17) gluten (Unverified Adverse Reaction, Unknown, none listed, 11/28/17) lactose (Unverified Adverse Reaction, Unknown, none listed, 11/28/17) Anesthesia OB ROS Airway Class: ll GI ROS: clear liquids Last Solids Date: Feb 28, 2018 Last Solids Time: 09:00 (PATIENT ATE CANDY BAR AT 0900 DESPITE NPO INSTRUCTIONS FROM RN.) ASA Classification: 2, 3 Assessment and Plan Anesthesia Plan: CSE Assessment patient prepped with pepcid and reglan. patient advised of risks of anesthesia with full stomach. anesthesia consulted with patient about possible need for c/ section and anesthesia is prepared for c/section when membranes are ruptured if required. STACEY QUIROZ CRNA Feb 28, 2018 11:46
--- NOTE | 2018-02-28 11:51 | Procedure Note ---
Anesthetic Placement Note Anesthesia Plan: CSE Permit for Anesthesia Signed: Yes Anesthesia Technique: Patient Sitting Anesthesia Prep: Chlorhexidine Interspace: L 4-5 Local Anesthetic: 1% Lidocaine, 25 Gauge Needle Amount Local - cc's: 3 Anesthesia Needle: 17g Touhy/Schliff Anesthesia Attempts: 1 Loss of Resistance: Normal Saline Depth of CINDY (cm): 8 Epidural Needle Placement: CSF, Blood Intrathecal Needle: 27 Gauge Pencan Cerebral Spinal Fluid: Yes, Clear Catheter Insertion (cm): 12 (at skin level) Catheter Type: Ruffin - Spring Wound Epidural Dressing: Tegaderm, Tape Anesthesia Tray: Lot Number ([id number]), Expiration Date (2019-04-14), Reference Number ([id number]) Anesthesia Medications: Intrathecal Dose: mcg Fentanyl (10), mg Marcaine MPF (2.5), Time (1059) Epidural Test Dose: 1.5 Lido/Epi (1:200,000), Dose - mL (3), Time (1104), Negative Epidural Loading Dose: 0.25% Marcaine, Dose - ml (3), Time (1110) Epidural Infusion: 0.2% Ropivicaine, With Fentanyl 2mcg/ml, Start Time: (1112) Epidural Pump Setting: Bolus Dose - mL (6), Lockout - Minutes (20), Maintenance Rate - mL/hr (6), Maximum per Hour - mL (24) Complications: None STACEY QUIROZ CRNA Feb 28, 2018 11:51
--- NOTE | 2018-02-28 12:21 | Labor Progress Note ---
Labor Subjective Progress Notes Subjective Pt is comfortable with epidural. No concerns. Labor Objective Vital Signs Vital Signs Date Time Temp Pulse Resp B/P (MAP) Pulse Ox O2 Delivery O2 Flow Rate FiO2 02/28/18 05:30 98.0 93 18 111/68 (82) 98 Room Air Vaginal Discharge/Fluid?: Clear Fluid, Large Amount Cervical Dialation: 6 Cervical Effacement (%): 70 Cervical Consistency: Soft Cervical Position: Mid Station: -2 Presentation: Vertex Uterine Contractions(Q min): 3 Uterine Contraction Strength: Moderate UC Resting Tone: Soft Fetus FHT Category: I General Exam General Appearance: Alert/Awake/No Acute Distress Integumentary: Skin Intact without Lesions or Rash Psychological: Alert & Oriented X3, Appropriate Mood & Affect Other Result Diagram: 02/28/18 0608 Assessment and Plan Problems: (1) 39 weeks gestation of Assessment & Plan: AROM with copious clear fluid. FSE placed. Continue with pitocin. Monitor for descent. SHAWN HUGO MD Feb 28, 2018 12:21
--- NOTE | 2018-02-28 13:47 | Anesthesia Progress Note ---
Progress/Maintenance Anesthesia Note Date: Feb 28, 2018 Anesthesia Note Time: 12:30 Pain Intensity: 1 Pump: On Pump Rate (ML/HR): 3 Motor Level: Bending Knees-Bilateral Dilatation: 7 Position: Tilt Anesthesia Treatment: epidural level T4 pump decreased to 3ml base rate STACEY QUIROZ CRNA Feb 28, 2018 13:46
--- NOTE | 2018-02-28 13:48 | Anesthesia Progress Note ---
Progress/Maintenance Anesthesia Note Time: 13:45 Pain Intensity: 3 Pump: On Pump Rate (ML/HR): 3 Sensory Level: T7 Motor Level: Bending Knees-Bilateral Dilatation: 7 Position: Left, Tilt Anesthesia Treatment: Patient block level down to T7. Patient comfort level adequate per pt. STACEY QUIROZ ELECTRICAL ENGINEERING DIRECTOR Feb 28, 2018 13:48
[2018-02-28] MEDS ORDERED: DLR(*) 1000 ML BAG 1,000 ML IV PRN ×2 (16:15→18:43)
[2018-02-28] MEDS ORDERED: DLR(*) 1000 ML BAG 1,000 ML IV ONE (16:21)
--- NOTE | 2018-02-28 16:59 | Labor Progress Note ---
Labor Subjective Progress Notes Subjective Pt is comfortable with epidural. Labor Objective Vital Signs Vital Signs Date Time Temp Pulse Resp B/P (MAP) Pulse Ox O2 Delivery O2 Flow Rate FiO2 02/28/18 05:30 98.0 93 18 111/68 (82) 98 Room Air Vaginal Discharge/Fluid?: Clear Fluid Cervical Dialation: 7 Cervical Effacement (%): 70 Cervical Consistency: Soft Cervical Position: Mid Station: -1 Presentation: Vertex Uterine Contractions(Q min): 3 Uterine Contraction Strength: Strong UC Resting Tone: Soft Fetus FHT Category: I General Exam General Appearance: Alert/Awake/No Acute Distress Psychological: Alert & Oriented X3, Appropriate Mood & Affect Other Result Diagram: 02/28/18 0608 Assessment and Plan Problems: (1) 39 weeks gestation of Assessment & Plan: Pt remains -1 station, no descent at all despite 4.5hrs of pitocin. I recommended PLTCD due to arrest of descent. She is considering this recommendation but wants more time to sit up straight prior to making that decision. Will re-evaluate in an hour. SHAWN HUGO MD Feb 28, 2018 16:59
[2018-02-28] MEDS ORDERED: MORPHINE PF 5 MG/10 ML AMP ONE (17:18)
[2018-02-28] MEDS ORDERED: PHENYLEPHRINE/NS/PF 0.4MG/10ML ONE (18:20)
[2018-02-28] MEDS ORDERED: OXYTOCIN 30 UNIT/LR 500 ML 500 ML IV PRN (18:43)
--- NOTE | 2018-02-28 18:43 | Post Operative Note ---
Operative Note - COUNSELING PROGRAM LEADER Operative Day Date: Feb 28, 2018 Time: 18:08 Physicians Surgeon: Christopher Station Attendant: Mitchel Anesthesia: Epidural, Jorge Lutz and Aylin Garcia Diagnosis Pre-Op Diagnosis: IUP at 39w2d with arrest of descent Post-Op Diagnosis: Same Placental abruption Delivery of viable male, 1808hrs, 3246g (7#2.5oz), Apgars 7/8 Procedure Findings: Forehead presentation Significant placental abruption with at least 600cc clot Procedure(s): PLTCD Complications: None Fluids Fluids: IVF: 600cc UOP: 50cc Estimated Blood Loss: 1200cc (600cc clot included) SHAWN HUGO MD Feb 28, 2018 18:43
[2018-02-28] MEDS ORDERED: PROMETHAZINE 25 MG/ML 1 ML AMP IVP PRN (18:45)
[2018-02-28] MEDS ORDERED: LANOLIN OINT 7 GM TUBE TP PRN (18:45)
[2018-02-28] MEDS ORDERED: SIMETHICONE 80 MG CHEW CHEW PRN (18:45)
[2018-02-28] MEDS ORDERED: ACETAMINOPHEN 325 MG TAB PO PRN (18:45)
[2018-02-28] MEDS ORDERED: INFLUENZA VIRUS VAC 0.5 ML SYR IM ONE (18:45)
[2018-02-28] MEDS ORDERED: MAGNESIUM HYDROXIDE* 30ML UDCP PO PRN ×3 (18:45→20:55)
[2018-02-28] MEDS ORDERED: ONDANSETRON 4 MG/2 ML VIAL IV PRN (18:45)
[2018-02-28 19:51] VITALS: BP 97/69
[2018-02-28] MEDS: DOCUSATE CALCIUM 240 MG CAP PO SCH (20:29)
[2018-02-28] MEDS: FAMOTIDINE 20 MG TAB PO SCH (20:29)
--- NOTE | 2018-02-28 23:18 | OPERATIVE REPORT 1 ---
EVENT DATE: February 28, 2018 SURGEON: Ankita White MD ANESTHESIA: Epidural, Pedro Luis Lutz CRNA and Aylin Garcia CRNA ELECTRICAL SERVICE TECHNICIAN: Felipe Grullon DO PREOPERATIVE DIAGNOSES 1. Intrauterine at 39 weeks 2 days. 2. Arrest of descent. POSTOPERATIVE DIAGNOSES 1. Intrauterine at 39 weeks 2 days. 2. Arrest of descent. 3. Placental abruption. 4. Delivery of a viable male at 1808 hours weighing 3246 g, or 7 pounds 2.5 ounces, with Apgars of 7 at one minute and 8 at five minutes. FINDINGS 1. Forehead presentation. 2. Significant placental abruption with at least 600 mL of clot. PROCEDURE PERFORMED Primary low transverse delivery. COMPLICATIONS None. INTRAVENOUS FLUIDS 600 mL URINE OUTPUT 50 mL ESTIMATED BLOOD LOSS 1200 mL (600 mL of clot included) INDICATIONS FOR PROCEDURE This patient is a 27-year-old 3, para 1-0-1-1, who presented for an induction of labor at 39 weeks 2 days due to advanced cervical dilation and frequent contractions. At the time of presentation, she was 6 cm dilated with a ballottable presentation. She was started on Pitocin to help bring the vertex down and received an epidural for anesthesia. An amniotomy was performed which did allow for the vertex to come down onto the cervix. However , after five hours of Pitocin and adequate contractions, there was no further descent of the vertex. The cervix was never able to dilate beyond 7 cm. After discussing the risks, benefits, and alternatives, the patient did elect to proceed with a primary delivery. Of note, on her very last cervical exam, there was a significant amount of bleeding and clot with suspicion for placental abruption. Therefore, the delivery proceeded more rapidly than previously planned. DESCRIPTION OF PROCEDURE The patient was properly identified and taken to the operating room. She previously had an epidural in place which was dosed by the CRNAs. She also had a Gordon catheter in place. She was placed in the supine position with a leftward tilt and prepped and draped in the usual fashion for a lower abdominal surgery. After adequate anesthesia was confirmed, a Pfannenstiel incision was made over the lower abdomen and carried down to the level of the rectus fascia. The fascia was nicked in the midline. The incision was extended in a blunt fashion. The peritoneum was then identified and entered in a blunt fashion. This incision, again, was extended bluntly. A bladder blade was then placed, and the vesicouterine peritoneum was taken down with a combination of Metzenbaum scissors and blunt dissection. Once the bladder was further reflected off the lower uterine segment, a transverse uterine incision was made with a scalpel and carried down, revealing ruptured membranes. This incision was then extended in a cephalocaudad blunt fashion. The infant's head was delivered and noted to be in the forehead presentation. An anterior shoulder delivered easily, followed by a posterior shoulder. There was no nuchal cord. The remainder of the infant was carefully delivered without difficulty. The infant had spontaneous cry and spontaneous movement of all four extremities. The oropharynx and nasopharynx were bulb suctioned. After 30 seconds, the cord was clamped times two and cut, and the infant was passed to nursing personnel in good condition. Cord blood was then obtained. Of note , as soon as the hysterotomy was made, there was abundant clot that came out, and even more clot followed delivery of the infant. This was quantified as at least 600 mL of blood. Once cord blood was obtained, the placenta was delivered easily as it was mostly on its own. This was passed off the table. The uterus was then exteriorized and cleared of any remaining clots or debris. The uterine incision was reapproximated using 0 Vicryl in a running locking fashion, followed by an imbricating layer of 0 Monocryl in a running nonlocking fashion. Once hemostasis was assured, the uterus was replaced in the abdominal cavity, and the pericolic gutters were cleared of clots and debris. The peritoneum was then reapproximated using a 3-0 Monocryl, followed by reapproximation of the rectus muscle in the midline. Copious irrigation was then performed, and the rectus muscle was made hemostatic. The rectus fascia was then reapproximated with an 0 Vicryl, working one apex to the next. The subcutaneous tissue was then irrigated and reapproximated using a 3-0 Monocryl. The skin was then closed with Insorb juli. A Primapore dressing was placed , followed by a pressure dressing. The patient tolerated this procedure well and recovered in Labor and Delivery with the infant. All sponge, needle, and instrument counts were correct at the end of this procedure. [facility]
[2018-03-01] VITALS: BP 105/75
[2018-03-01] MEDS ORDERED: NALOXONE HCL 0.4 MG/ML VIAL IVP PRN (00:20)
[2018-03-01] MEDS: NALBUPHINE HCL 10 MG/ML AMP IVP PRN ×2 (01:30→18:00)
[2018-03-01 04:45] VITALS: BP 91/54
[2018-03-01] MEDS: KETOROLAC 30 MG/ML VIAL IVP SCH ×3 (05:58→12:00)
[2018-03-01 06:00] VITALS: BP 101/61
[2018-03-01 06:26] LABS: PLATELET COUNT, AUTOMATED 147 K/uL (150-450)
--- NOTE | 2018-03-01 07:58 | OB/GYN Progress Note ---
OB Subjective Progress Notes Subjective Pt is sleeping soundly. RN reports she is ambulating well without SOB/dizziness /CP. She still has a fernández in. Normal lochia. No other concerns per RN. OB Objective Physical Exam Vital Signs Date Time Temp Pulse Resp B/P (MAP) Pulse Ox O2 Delivery O2 Flow Rate FiO2 03/01/18 06:00 98.2 91 12 101/61 (74) 98 Room Air General Appearance: Other (Sleeping) Respiratory: No Respiratory Distress Result Diagram: 03/01/18 0613 Assessment and Plan Problems: (1) Status post delivery Assessment & Plan: POD#1 s/p PLTCD. She is doing well per RN - will come back later to examine her. In the meantime, her Hgb is 9 this morning. Asymptomatic per RN. Will monitor for symptoms today and start FeSO4. SHAWN HUGO MD Mar 01, 2018 07:58
[2018-03-01] MEDS: FERROUS SULFATE 325 MG TAB PO SCH ×2 (08:33→17:33)
[2018-03-01] MEDS: FAMOTIDINE 20 MG TAB PO SCH ×2 (08:33→21:45)
[2018-03-01] MEDS: DOCUSATE CALCIUM 240 MG CAP PO SCH ×2 (08:33→21:45)
[2018-03-01] MEDS ORDERED: DIPHTH/TETANUS/ACEL. PERTUSSIS IM ONLY ONE (09:00)
[2018-03-01 10:13] VITALS: BP 100/63
[2018-03-01] MEDS: IBUPROFEN 800 MG TAB PO SCH (12:35)
--- NOTE | 2018-03-01 14:26 | Anesthesia Post Eval Note ---
Anesthesia Post Eval Note Vital Signs 03/01/18 10:13 Temp 98.3 Pulse 95 Resp 16 B/P (MAP) 100/63 (75) Pulse Ox 97 O2 Delivery Room Air Pt able to participate in Eval: Yes Cardiovascular Status: Satisfactory Respiratory Status: Satisfactory Pain Managment: Satisfactory PO Nausea/Vomiting: Satisfactory Temperature Management: Satisfactory Mental Status: Satisfactory, Alert, Oriented X3 Post-Op Hydration Status: Satisfactory, Tolerating PO Well, Voiding w/o Difficulty Anesthesia Type: CSE JUAN DAS CRNA Mar 01, 2018 14:26
[2018-03-01 19:46] VITALS: BP 90/62
[2018-03-01 22:54] VITALS: BP 105/71
[2018-03-02] MEDS: IBUPROFEN 800 MG TAB PO SCH ×2 (01:35→10:07)
[2018-03-02 02:18] VITALS: BP 99/64
--- NOTE | 2018-03-02 08:11 | OB/GYN Progress Note ---
OB Subjective Progress Notes Subjective Doing well. Pain controlled with oral medications. Tolerating regular diet. Ambulating. Voiding. Normal lochia. No preeclampsia symptoms. OB Objective Physical Exam Vital Signs Date Time Temp Pulse Resp B/P (MAP) Pulse Ox O2 Delivery O2 Flow Rate FiO2 03/02/18 02:18 98.0 74 20 99/64 (76) 94 Room Air General Appearance: Alert/Awake/No Acute Distress Neurological: No Gross deficits Eyes: Normal Extraocular Movement & Vison Cardiovascular: Normal Rhythm & Peripheral Pulses Respiratory: No Respiratory Distress, Clear to Auscultation Abdomen: Soft, Non-Tender, Non-Distended, Fundus Firm Incision: Clean, Dry, Intact Extremities: No Cyanosis,Clubbing or Edema Integumentary: Skin Intact without Lesions or Rash Psychological: Alert & Oriented X3, Appropriate Mood & Affect Result Diagram: 03/01/18 0613 Assessment and Plan Problems: (1) Status post delivery Assessment & Plan: POD#2 s/p PLTCD. Meeting milestones. Desires discharge to home today. Discussed routine expectations. Questions answered. Follow up in clinic in 2wks for incision check and 6wks for check. SHAWN HUGO MD Mar 02, 2018 08:11
[2018-03-02] MEDS ORDERED: IBUP800T37 PO (08:13)
[2018-03-02] MEDS ORDERED: FERR-41 PO (08:14)
[2018-03-02] MEDS ORDERED: OXYC-865 PO (08:14)
--- NOTE | 2018-03-02 08:17 | OB/GYN Discharge Summary ---
Discharge Summary Reason for Hosp/Final Diag: (1) Status post delivery Hospital Course & Plan: POD#2 s/p PLTCD. Meeting milestones. Desires discharge to home today. Discussed routine expectations. Questions answered. Follow up in clinic in 2wks for incision check and 6wks for check. Lates Vital Signs Vital Signs Date Time Temp Pulse Resp B/P (MAP) Pulse Ox O2 Delivery O2 Flow Rate FiO2 03/02/18 02:18 98.0 74 20 99/64 (76) 94 Room Air Weight (Pounds): 205 Result Diagram: 03/01/18612 Condition: Improved Discharge: Home, Self [facility] Meds Active Scripts Oxycodone Hcl/Acetaminophen (PERCOCET 5-325 MG TABLET) 1 Each Tablet, 1-2 TAB PO Q4-6H Y for PAIN, #30 TAB 0 Refills Prov:SHAWN WHITE MD 03/02/18 Ondansetron (ZOFRAN ODT) 4 Mg Tab.rapdis, 4 MG PO Q8H Y for ausean, #15 TAB.BUDDY 0 Refills Prov:SHAWN WHITE MD 02/08/18 Sertraline Hcl (SERTRALINE HCL) 100 Mg Tablet, 1 TAB PO QDAY, #90 TAB 3 Refills Prov:SHAWN WHITE MD 12/07/17 Reported Medications Loratadine/Pseudoephedrine (CLARITIN-D 24 HOUR TABLET) 1 Each Tab.er.24h, 1 EACH PO 02/13/18 Vits W-Ca,Fe,Fa(<1MG) ( VITAMINS) 1 Each Tablet, 1 TAB PO DAILY , TAB 04/23/17 Follow up Referrals: IT ARCHITECT - [place] [facility] with Shawn White Md Discharge Diet: As Tolerates Discharge Activity: No Heavy Lifting > 10lb, Pelvic Rest SHAWN WHITE MD Mar 02, 2018 08:17
[2018-03-02] MEDS: DOCUSATE CALCIUM 240 MG CAP PO SCH (09:00)
[2018-03-02] MEDS: FAMOTIDINE 20 MG TAB PO SCH (09:00)
[2018-03-02] MEDS: FERROUS SULFATE 325 MG TAB PO SCH (10:07)
--- NOTE | 2018-03-02 19:10 | Anesthesia Progress Note ---
Assessment and Plan Anesthesia Plan: CSE Anesthesia Stop Day: Feb 28, 2018 Anesthesia Stop Time: 18:45 Epidural Catheter Removal: Removed Catheter Intact, Yes, Removed by: (bebe quiroz CRNA) Removal Date: Feb 28, 2018 Removal Time: 18:37 BEBE QUIROZ CRNA Mar 02, 2018 19:10
[2018-03-03] MEDS ORDERED: CLOB15OI16 TP ×2 (08:22→09:50)
== END 2018-03-02 11:15 | disposition home or self-care (01) | DRG 765 ==
LOC: OB 05:08
PROVIDERS: ADMIT Obstetrics & Gynecology; ATTEND Obstetrics & Gynecology
PROC: 10D00Z1 Extraction of Products of Conception, Low, Open Approach (ICD-10-PCS; principal; 2018-02-28)
PROC: 10907ZC Drainage of Amniotic Fluid, Therapeutic from Products of Conception, Via Natural or Artificial Opening (ICD-10-PCS; 2018-02-28)
PROC: 3E033VJ Introduction of Other Hormone into Peripheral Vein, Percutaneous Approach (ICD-10-PCS; 2018-02-28)
DX: O62.1 Secondary uterine inertia (principal); O45.93 Premature separation of placenta, unspecified, third trimester; O99.214 Obesity complicating childbirth; E66.9 Obesity, unspecified; O99.344 Other mental disorders complicating childbirth; F32.9 Major depressive disorder, single episode, unspecified; Z68.37 Body mass index [BMI] 37.0-37.9, adult; Z37.0 Single live birth; Z3A.39 39 weeks gestation of pregnancy; Z88.1 Allergy status to other antibiotic agents
CPT/HCPCS: 36415; 85025; 86850; 86900; 86901; J1885; J2270; J2300; J2310; J2370; J2405; J2590; J2765; J3010; J3490; J7120; S0020